=== PATIENT | female | born 1980 | race Caucasian/White ===

== ENCOUNTER → 2025-02-18 | Day surgery (SDC) | payer BC ==
[~2025-02-18] MED LIST: Gadobenate Dimeglumine 2 ML, Sodium Chloride 0.9% 250 ML 10 ML, Iopamidol 8 ML, Lidocai... FS ONE
== END ==
LOC: CSHRAD 09:54
PROVIDERS: ATTEND Family Medicine Sports Medicine
DX: S43.432A Superior glenoid labrum lesion of left shoulder, initial encounter (principal); X58.XXXA Exposure to other specified factors, initial encounter; Z91.040 Latex allergy status
CPT/HCPCS: 23350; 77002; A9577; J0166; J7050; Q9967